=== PATIENT | female | born 1975 | race Caucasian/White ===

== ENCOUNTER → 2021-08-30 | Outpatient (CLI) | payer BC | LOC: COL.RAD 07:33 | DX: K40.90 Unilateral inguinal hernia, without obstruction or gangrene, not specified as recurrent (principal); K42.9 Umbilical hernia without obstruction or gangrene; D35.01 Benign neoplasm of right adrenal gland; K59.00 Constipation, unspecified; Z90.710 Acquired absence of both cervix and uterus; Z98.84 Bariatric surgery status ==